=== PATIENT | male | born 1990 | race Caucasian/White ===

== ENCOUNTER 2019-01-10 23:05 | Emergency (ER) | payer OTHER ==
[~2019-01-10] VITALS: Ht 200.7 cm; Wt 111.4 kg
[2019-01-10 23:10] VITALS: BP 133/66; TEMP 98.1
[2019-01-10] MEDS ORDERED: BACTRIM DS 8001 TAB PO (23:31)
[2019-01-10 23:48] VITALS: PULSE 65
== END 2019-01-10 23:48 | disposition home or self-care (01) ==
LOC: COL.ER 23:05
DX: L03.116 Cellulitis of left lower limb (principal); Z87.891 Personal history of nicotine dependence